=== PATIENT | female | born 1995 | race Caucasian/White ===

== ENCOUNTER 2019-12-18 02:38 | Inpatient (IN) ==
[2019-12-18] MEDS ORDERED: OXYTOCIN 30 UNITS/500 ML BAG IV PRN ×3 (03:05→21:56)
[2019-12-18 03:37] LABS: Hematocrit (blood only) 34.6 % (37-47); Hemoglobin 11.5 g/dL (12.0-16.0); Mean Corpuscular Volume 84.2 fL (80-100); Mean Platelet Volume 10.2 fL (7.4-10.4); Platelet Count 235 K/uL (130-400); RDW Coefficient of Variation 16.7 % (11.5-14.5); RDW Standard Deviation 51.8 fL (36.4-46.3); Red Blood Count 4.11 M/uL (4.2-5.4); White Blood Count 11.05 K/uL (4.8-10.8)
[2019-12-18] MEDS ORDERED: PATIENT'S ALLERGY INFO NEEDS ENTERED STA (03:38)
[2019-12-18 03:59] LABS: Mean Corpuscular Hgb Conc 33.2 g/dL (32-36)
--- NOTE | 2019-12-18 08:34 | History & Physical Report ---
Date of Service December 18, 2019 Assessment & Plan (1) Premature rupture of membranes: Patient is a 24-year-old G1, P0 at 39 weeks and 5 days of gestation, admitted for premature rupture of membranes at term, not in labor. Vital signs stable afebrile, heart rate reassuring, GBS negative, Coronavirus negative, Discussed with the patient about induction of labor at term to a decrease risk of intermittent infection. Patient agrees with Pitocin to induce labor. All questions were answered. Admission and Anticipated Discharge Date Admission Date: December 18, 2019 History of Present Illness Primary Care Provider: NO PCP Patient is a 24-year-old G1, P0 at 39 weeks and 5 days of gestation who was admitted this morning for spontaneous rupture of membranes. Patient started to feel leakage of fluid at 1 AM. It has been clear. Patient denies contractions, vaginal bleeding, fever chills, abdominal pain, headaches, change in her vision and nausea or vomiting. Her was uncomplicated. Rh- GBS negative Coronavirus negative. 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 Other Information That Helps Us Care for You: No Feels Safe at Home: Yes Safety Concerns: Feels Safe At This Time [employer] TE[employer] History No history of STDs, no chlamydia, gonorrhea nor genital herpes. Physical Exam Constitutional: WD/WN, vitals as above well developed and well nourished Patient is comfortably lying in smiling, not in acute distress Gastrointestinal (Abdomen): normal bowel sounds, soft, nontender, no hepatosplenomegaly (Gravid, 7 to 8 pounds.) Genitourinary: normal external appearance Manual OB Exam: + cervical dilation 1 cm, + cervical effacement 10% and + station -2 OB Exam Monitor Tracing: + external uterine monitor used and + category I Results & Data ([facility]) Vital Signs (Past 12 Hours) Vital Signs Temp Pulse Resp BP 12/18/19 07:11 36.7 C 77 18 124/70 12/18/19 07:06 77 124/70 12/18/19 06:46 81 122/61 12/18/19 05:57 80 131/81 12/18/19 05:56 36.8 C 16 12/18/19 03:10 36.5 C 89 16 120/71
[2019-12-18] MEDS: LACTATED RINGER'S 1,000 ML IV PRN ×2 (08:59→19:55)
[2019-12-18] MEDS ORDERED: fentaNYL 2MCG/ML ROPIVACAINE 1.25MG/ML 100 ML BAG EPI PRN (13:42)
[2019-12-18] MEDS ORDERED: NALOXONE HCL 0.4 MG/1 ML VIAL/CARP IV PRN (13:42)
[2019-12-18] MEDS ORDERED: diphenhydrAMINE 50 MG/ML VIAL IV PRN (13:42)
[2019-12-18] MEDS ORDERED: ePHEDrine sulfate 50 MG/ML AMP IV PRN (13:42)
[2019-12-18] MEDS ORDERED: ONDANSETRON INJ 2 MG/ML 2 ML VIAL IV PRN (13:42)
[2019-12-18] MEDS ORDERED: NALOXONE HCL 1 MG in SODIUM CHLORIDE 0.9% 1000ML 1,000 ML IV PRN (13:42)
--- NOTE | 2019-12-18 13:51 | Anesthesiology Consultation ---
Date of Service December 18, 2019 Assessment & Plan (1) Encounter for pre-operative examination: Chart Review Chart Review: Patient NOT seen in Pre Admission Testing and Acceptable Risk for Labor Epidural Consults Requested none History Height/Weight Height: 5 ft 6 in Weight: 92.079 kg Allergies Allergy/AdvReac Type Severity Reaction Status Date / Time No Known Allergies Allergy Verified 12/18/19 08:44 Medications Home Medications Medication Instructions Recorded Confirmed Last Taken prenat.vits,fabienne,dyi-izkt-aqpsc 1 tab PO DAILY 12/18/19 12/18/19 12/17/19 07:00 [ Vitamin] Active Medications Generic Name Dose Route Start Last Admin Trade Name Freq PRN Reason Stop Dose Admin Lactated Ringer's 1,000 mls @ 125 mls/hr 12/18/19 03:05 12/18/19 08:59 Lr IV 12/20/19 03:04 125 mls/hr .Q8H PRN Administration L&D Protocol Protocol Oxytocin 30 units in 500 mls @ 10 mls/hr 12/18/19 08:29 12/18/19 11:00 Pitocin IV 12/20/19 08:28 0.6 units/hr .Q24H PRN 10 mls/hr Labor Induction/Augmentation Titration Protocol 0.6 UNITS/HR Exercise / Class Metabolic Activity II 4-5 Yardwork/Stairs/Walk up hill Past Anesthesia History No Hx of Anesthesia Complications and No Family Hx of Anesthesia Complications History of PONV No Hx of PONV and No Hx of Motion Sickness Social History Smoking Status: Never smoker Do You Dip or Chew Tobacco: No Hx Alcohol Use: No Hx Substance Use: No substance use type: does not use Physical Exam Vital Signs Last Vital Signs Temp 36.5 C 12/18/19 11:22 Pulse 75 12/18/19 13:46 Resp 18 12/18/19 11:22 BP 117/70 12/18/19 13:46 Pulse Ox 97 12/18/19 13:44 Testing Laboratory Results 12/18/19 03:20
[2019-12-18] MEDS ORDERED: ePHEDrine sulfate 50 MG/ML AMP ONE (13:59)
[2019-12-18] MEDS ORDERED: BUPIVACAINE 0.25% 30 ML VIAL ONE (13:59)
[2019-12-18] MEDS ORDERED: fentaNYL citrate 100 MCG/2 ML VIAL ONE (13:59)
[2019-12-18] MEDS ORDERED: fentaNYL 2MCG/ML ROPIVACAINE 1.25MG/ML 100 ML BAG EPI ONE (14:00)
--- NOTE | 2019-12-18 16:00 | Obstetrical Progress Note ---
Date of Service December 18, 2019 Assessment & Plan Admission and Anticipated Discharge Date Admission Date: December 18, 2019 Subjective Late entry from 1530 Patient is comfortable, received epidural for pain Pitocin is at 16 miu/min FHR categ I VE; 2/ 80%/ -2 Continue to monitor closely Anticipate Results & Data ([facility]) Vital Signs (Past 12 Hours) Vital Signs Temp Pulse Resp BP Pulse Ox 12/18/19 15:56 66 98 12/18/19 15:51 64 97 12/18/19 15:48 74 118/66 12/18/19 15:46 62 96 12/18/19 15:41 62 97 12/18/19 15:36 59 L 98 12/18/19 15:33 61 114/66 12/18/19 15:31 64 97 12/18/19 15:26 71 96 12/18/19 15:21 75 97 12/18/19 15:16 68 124/63 98 12/18/19 15:11 60 120/71 98 12/18/19 15:06 77 97 12/18/19 15:05 71 117/69 12/18/19 15:01 74 119/69 97 12/18/19 14:56 82 125/72 96 12/18/19 14:51 71 97 12/18/19 14:50 67 128/62 12/18/19 14:46 74 97 12/18/19 14:45 72 122/65 12/18/19 14:43 80 123/65 12/18/19 14:41 75 123/67 97 12/18/19 14:39 67 117/59 L 12/18/19 14:37 78 124/66 12/18/19 14:36 72 97 12/18/19 14:35 75 124/66 12/18/19 14:33 80 124/65 12/18/19 14:31 78 128/73 98 12/18/19 14:29 81 124/66 12/18/19 14:27 67 127/67 12/18/19 14:26 77 97 12/18/19 14:25 81 125/67 12/18/19 14:23 74 125/65 12/18/19 14:21 86 118/55 L 100 12/18/19 14:19 75 129/59 L 12/18/19 14:17 87 132/72 12/18/19 14:16 86 99 12/18/19 14:15 98 H 131/75 12/18/19 14:13 88 133/75 12/18/19 14:11 89 129/74 100 12/18/19 14:09 74 121/68 12/18/19 14:06 94 H 99 12/18/19 14:01 75 99 12/18/19 13:56 81 98 12/18/19 13:49 84 96 12/18/19 13:46 75 117/70 12/18/19 13:44 80 97 12/18/19 13:43 190 H 82 L 12/18/19 12:31 73 119/70 12/18/19 11:22 36.5 C 73 18 121/67 12/18/19 09:30 36.7 C 76 20 116/64 12/18/19 07:11 36.7 C 77 18 124/70 12/18/19 07:06 77 124/70 12/18/19 06:46 81 122/61 12/18/19 05:57 80 131/81 12/18/19 05:56 36.8 C 16
--- NOTE | 2019-12-18 20:58 | Obstetrical Progress Note ---
Date of Service December 18, 2019 Assessment & Plan Admission and Anticipated Discharge Date Admission Date: December 18, 2019 Subjective Patient is reevaluated Feels mild cramping VE; 10/ 10%/ +3, almost FHR categ I Plan to start pushing Results & Data ([facility]) Vital Signs (Past 12 Hours) Vital Signs Temp Pulse Resp BP Pulse Ox 12/18/19 20:51 82 100 12/18/19 20:46 91 H 99 12/18/19 20:41 117 H 99 12/18/19 20:36 69 97 12/18/19 20:33 65 117/69 12/18/19 20:31 69 97 12/18/19 20:30 20 12/18/19 20:26 76 98 12/18/19 20:21 81 97 12/18/19 20:18 78 113/68 12/18/19 20:16 85 98 12/18/19 20:11 75 97 12/18/19 20:06 73 98 12/18/19 20:03 78 118/69 12/18/19 20:01 76 98 12/18/19 20:00 20 12/18/19 19:56 76 100 12/18/19 19:51 69 100 12/18/19 19:48 67 119/65 12/18/19 19:46 66 97 12/18/19 19:41 63 97 12/18/19 19:36 64 98 12/18/19 19:33 65 124/69 12/18/19 19:31 65 99 12/18/19 19:26 68 99 12/18/19 19:21 67 99 12/18/19 19:18 64 120/70 12/18/19 19:16 60 97 12/18/19 19:11 62 98 12/18/19 19:06 68 99 12/18/19 19:03 37.0 C 75 18 125/73 12/18/19 19:01 66 100 12/18/19 18:56 67 99 12/18/19 18:51 68 99 12/18/19 18:48 63 118/67 12/18/19 18:46 70 98 12/18/19 18:41 64 98 12/18/19 18:36 75 98 12/18/19 18:33 71 114/63 12/18/19 18:31 75 98 12/18/19 18:26 77 98 12/18/19 18:21 74 97 12/18/19 18:18 67 18 129/70 12/18/19 18:16 82 98 12/18/19 18:11 76 98 12/18/19 18:06 82 97 12/18/19 18:03 69 102/57 L 12/18/19 18:01 74 97 12/18/19 17:56 72 97 12/18/19 17:51 84 97 12/18/19 17:48 70 105/58 L 12/18/19 17:46 37.0 C 65 18 110/63 97 12/18/19 17:41 76 97 12/18/19 17:36 86 97 12/18/19 17:33 85 114/65 12/18/19 17:31 74 97 12/18/19 17:26 75 97 12/18/19 17:21 88 97 12/18/19 17:18 82 18 114/65 12/18/19 17:16 81 97 12/18/19 17:11 73 97 12/18/19 17:06 73 97 12/18/19 17:03 75 118/67 12/18/19 17:01 74 96 12/18/19 16:56 69 98 12/18/19 16:51 82 97 12/18/19 16:48 90 120/67 12/18/19 16:46 91 H 98 12/18/19 16:41 84 98 12/18/19 16:36 72 99 12/18/19 16:34 76 117/66 12/18/19 16:31 64 98 12/18/19 16:26 64 99 12/18/19 16:21 64 99 12/18/19 16:18 63 18 115/69 12/18/19 16:16 66 100 12/18/19 16:11 66 98 12/18/19 16:06 64 98 12/18/19 16:03 62 18 120/72 12/18/19 16:01 69 98 12/18/19 15:56 66 98 12/18/19 15:51 64 97 12/18/19 15:48 74 18 118/66 12/18/19 15:46 62 96 12/18/19 15:41 62 97 12/18/19 15:36 59 L 98 12/18/19 15:33 61 18 114/66 12/18/19 15:31 64 97 12/18/19 15:26 71 96 12/18/19 15:21 75 97 12/18/19 15:16 68 18 124/63 98 12/18/19 15:11 60 120/71 98 12/18/19 15:06 77 97 12/18/19 15:05 71 117/69 12/18/19 15:01 74 18 119/69 97 12/18/19 14:56 82 125/72 96 12/18/19 14:51 71 97 12/18/19 14:50 67 18 128/62 12/18/19 14:46 74 18 97 12/18/19 14:45 72 122/65 12/18/19 14:43 80 123/65 12/18/19 14:41 75 16 123/67 97 12/18/19 14:39 67 16 117/59 L 12/18/19 14:37 78 124/66 12/18/19 14:36 72 97 12/18/19 14:35 75 18 124/66 12/18/19 14:33 80 124/65 12/18/19 14:31 78 128/73 98 12/18/19 14:29 81 124/66 12/18/19 14:27 67 127/67 12/18/19 14:26 77 97 12/18/19 14:25 81 125/67 12/18/19 14:23 74 125/65 12/18/19 14:21 86 118/55 L 100 12/18/19 14:19 75 129/59 L 12/18/19 14:17 87 132/72 12/18/19 14:16 86 99 12/18/19 14:15 98 H 131/75 12/18/19 14:13 88 133/75 12/18/19 14:11 89 129/74 100 12/18/19 14:09 74 121/68 12/18/19 14:06 94 H 99 12/18/19 14:01 75 99 12/18/19 13:56 81 98 12/18/19 13:49 84 96 12/18/19 13:46 75 117/70 12/18/19 13:44 80 97 12/18/19 13:43 190 H 82 L 12/18/19 12:31 73 119/70 12/18/19 11:22 36.5 C 73 18 121/67 12/18/19 09:30 36.7 C 76 20 116/64
[2019-12-18] MEDS ORDERED: oxyCODONE/ACETAMINOPHEN 5mg/325mg TAB PO PRN (21:56)
[2019-12-18] MEDS ORDERED: MEASLES, MUMPS & RUBELLA VIRUS VIAL SQ ONE (21:56)
[2019-12-18] MEDS ORDERED: HYDROCORTISONE ACETATE 25 MG SUPP PR PRN (21:56)
[2019-12-18] MEDS ORDERED: ACETAMINOPHEN 325 MG TAB PO PRN (21:56)
[2019-12-18] MEDS ORDERED: bisacodyL 10 MG SUPP PR PRN (21:56)
[2019-12-18] MEDS ORDERED: DIPHTHERIA/TETANUS/PERTUSSIS 0.5 ML SYR/VIAL IM ONE (21:56)
[2019-12-18] MEDS ORDERED: SUPERCREAM 0.870% 15 GM JAR EXT PRN (21:56)
[2019-12-18] MEDS ORDERED: BENZOCAINE 20% AER SPR 82.5 GM CAN EXT PRN (21:56)
--- NOTE | 2019-12-18 23:35 | Delivery Summary ---
DATE OF OPERATION: 12/18/2019 TIME: 21:27 p.m. DETAILS OF DELIVERY: The patient was found to be fully dilated and desired to push. She pushed for about half an hour and delivered the head without difficulty. Shoulders were delivered with minimal traction. Baby was handed off to the mother. Mouth and nose were suctioned. Cord was clamped x2 and cut at 1 minute delay and cord blood was obtained and then vagina and perineum were checked for lacerations. There were bilateral first degree labial lacerations. Right side was extending into the lower third of right vaginal wall. The right side was bleeding. It was repaired with 2-0 Vicryl starting from vagina corner, extending into the labia. Labial part was repaired with 3-0 Vicryl on SH needle and then the left labial first degree laceration was also repaired with 3-0 Vicryl on SH needle. Excellent hemostasis was achieved. Placenta was found to be in the vagina, delivered spontaneous as intact and complete. Uterus was explored, found to be empty. Lower segment was cleared of all clots and debris. Fundus was firm. EBL was 300 mL. Mom and baby tolerated the procedure well. Sponge, lap, needle count was correct x2. Baby was a viable female , Apgars 8/9. No complications happened and I was present during whole procedure. I attest to the content of the Intraoperative Record and any orders documented therein. Any exceptions are noted below. MTDD
--- NOTE | 2019-12-19 00:50 | Anesthesia Procedure Note ---
Date of Service December 19, 2019 Anesthesia Post Epidural Note Vital Signs Vital Signs: Temp Pulse Resp BP Pulse Ox 37.0 C 75 18 111/65 98 12/18/19 21:00 12/19/19 00:41 12/18/19 22:38 12/19/19 00:41 12/18/19 21:46 Pain Intensity Lower Back: Pain Intensity: 0 Notes Mental Status: alert / awake / arousable and participated in evaluation Patient Amnestic to Procedure: No Nausea / Vomiting: adequately controlled Pain: adequately controlled Airway Patency, RR, SpO2: stable & adequate BP & HR: stable & adequate Hydration State: stable & adequate Neuraxial Anesthesia: was administered and sensory block is resolving Anesthetic Complications: no major complications apparent and Pt Satisfied with anesthetic care Epidural: Removed without complications and With tip intact
[2019-12-19 06:52] LABS: Hematocrit (blood only) 30.1 % (37-47); Hemoglobin 10.2 g/dL (12.0-16.0); Mean Corpuscular Hemoglobin 28.3 pg (25-34); Mean Corpuscular Hgb Conc 33.9 g/dL (32-36); Mean Corpuscular Volume 83.6 fL (80-100); Mean Platelet Volume 10.3 fL (7.4-10.4); Platelet Count 230 K/uL (130-400); RDW Coefficient of Variation 16.5 % (11.5-14.5); RDW Standard Deviation 50.5 fL (36.4-46.3); White Blood Count 16.56 K/uL (4.8-10.8)
[2019-12-19] MEDS: DOCUSATE SODIUM 100 MG CAP PO SCH ×2 (07:46→20:42)
[2019-12-19] MEDS: IBUPROFEN 600 MG TAB PO PRN ×3 (07:46→20:38)
[2019-12-19] MEDS: PRENATAL VITAMIN 1 TAB PO SCH (07:46)
[2019-12-19] MEDS: FERROUS SULFATE 325 MG TAB PO SCH (07:47)
[2019-12-19] MEDS ORDERED: bisacodyL 5 MG TABEC PO SCH (20:00)
[2019-12-20] MEDS: IBUPROFEN 600 MG TAB PO PRN ×2 (02:57→08:45)
[2019-12-20 06:17] LABS: Hematocrit (blood only) 25.9 % (37-47); Hemoglobin 8.6 g/dL (12.0-16.0)
[2019-12-20] MEDS: FERROUS SULFATE 325 MG TAB PO SCH (08:45)
[2019-12-20] MEDS: PRENATAL VITAMIN 1 TAB PO SCH (08:45)
[2019-12-20] MEDS: DOCUSATE SODIUM 100 MG CAP PO SCH (08:45)
--- NOTE | 2019-12-20 11:14 | Obstetrical Progress Note ---
Date of Service December 20, 2019 Assessment & Plan Admission and Anticipated Discharge Date Admission Date: December 18, 2019 Physical Exam Physical Exam: abdomen soft and non tender no calf tenderness ambulating well vaginal bleeding scant hgb 8.6 Results & Data ([facility]) Vital Signs (Past 12 Hours) Vital Signs Temp Pulse Resp BP 12/20/19 08:15 36.6 C 89 16 121/75 12/19/19 23:30 36.8 C 82 18 114/74
== END 2019-12-20 13:14 | disposition home or self-care (01) | DRG 807 ==
LOC: OPB 02:38 → 4S1 03:04 → 4S2 12-19 00:57

== ENCOUNTER 2022-06-25 22:37 | Inpatient (IN) ==
[2022-06-25] MEDS ORDERED: LIDOCAINE 1% LOCAL 20 ML VIAL INFIL PRN (23:35)
[2022-06-25] MEDS ORDERED: PENICILLIN G POTASSIUM 6 MU in DEXTROSE 5% 250 ML IV STA (23:35)
[2022-06-25] MEDS ORDERED: OXYTOCIN 30 UNITS/500 ML BAG IV PRN ×2 (23:35→23:36)
[2022-06-25] MEDS: LACTATED RINGER'S 1,000 ML IV PRN (23:45)
[2022-06-26 00:21] LABS: Hematocrit (blood only) 32.7 % (37.0-47.0); Hemoglobin 10.9 g/dl (12.0-16.0); Mean Corpuscular Hemoglobin 27.9 pg (25.0-34.0); Mean Corpuscular Hgb Conc 33.3 g/dL (32.0-36.0); Mean Corpuscular Volume 83.6 fL (80.0-100.0); Platelet Count 273 K/uL (130-400); RDW Coefficient of Variation 13.8 % (11.5-14.5); RDW Standard Deviation 41.7 fL (36.4-46.3); Red Blood Count 3.91 M/uL (4.20-5.40); White Blood Count 10.35 K/ul (4.8-10.8)
--- NOTE | 2022-06-26 00:24 | History & Physical Report ---
Date of Service June 26, 2022 Assessment & Plan (1) Spontaneous rupture of amniotic membranes: Plan: 26-year-old -0-0-1 at 41 weeks of gestation who was scheduled for induction of labor for today but presenting with spontaneous rupture of membranes since 10 PM last night. Vital signs stable afebrile, heart rate reassuring, Light meconium noted on exam, Cervix favorable, GBS positive, Plan to admit, monitor, labs, penicillin for GBS and then induction/augmentation with oxytocin, All questions were answered. (2) Meconium in amniotic fluid: (3) GBS (group B Streptococcus carrier), +RV culture, currently : (4) Post-term , 40-42 weeks of gestation: Admission and Anticipated Discharge Date Admission Date: June 25, 2022 History of Present Illness Chief Complaint: Leaking of fluid Primary Care Provider: NO PCP Patient is a 26-year-old -0-0-1 at 41 weeks of gestation who was sent to feel leakage of fluid since 10 PM last night. It was yellow initially and then has been clear. She feels mild irregular contractions, they are not painful yet. She denies vaginal bleeding, fever chills, headaches, change in her vision. She reports good movements. Her has been uncomplicated except Rh-, GBS positive. Allergies Allergy/AdvReac Type Severity Reaction Status Date / Time No Known Allergies Allergy Verified 12/18/19 08:44 Home Medications Medication Instructions Recorded Confirmed Type prenat.vits,fabienne,trw-cwia-brjoh 1 tab PO DAILY 12/18/19 06/25/22 History Patient History Social History Smoking Status: Never smoker Second Hand Exposure: No; Hx Alcohol Use: No Hx Substance Use: No Preferred Language: Citizen Of [place] Communication Ability: Effective Coal Shooter Required: No Beliefs That Will Affect Care: None marital status: Current Living Situation: Spouse and Family Current Living Situation Comment: Pt lives with and 2 YO daughter. 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 history of STDs, no history of genital herpes, chlamydia, gonorrhea Review of Systems as per Subjective / HPI Physical Exam Constitutional: WD/WN, vitals as above well developed, well nourished and comfortable Gastrointestinal (Abdomen): normal bowel sounds, soft, nontender, no hepatosplenomegaly (Gravid) Genitourinary: normal external appearance (Grossly ruptured, light meconium stained fluid) OB Exam Abdomen: + vertex Manual OB Exam: + cervical dilation 3 cm, + cervical effacement 30% and + station -2 OB Exam Monitor Tracing: + external uterine monitor used and + category I Results & Data Vital Signs (Past 12 Hours) Vital Signs Temp Pulse Resp BP 06/25/22 23:19 85 126/70 06/25/22 23:02 36.9 C 18 Diagnostic Findings Lab Results 06/25/22 06/25/22 Range/Units 23:00 23:46 WBC 10.35 (4.8-10.8) K/ul RBC 3.91 L (4.20-5.40) M/uL Hgb 10.9 L (12.0-16.0) g/dl Hct 32.7 L (37.0-47.0) % MCV 83.6 (80.0-100.0) fL MCH 27.9 (25.0-34.0) pg MCHC 33.3 (32.0-36.0) g/dL RDW Std Deviation 41.7 (36.4-46.3) fL RDW Coeff of Augie 13.8 (11.5-14.5) % Plt Count 273 (130-400) K/uL MPV 10.0 (9.4-12.4) fL SARS-CoV-2, RNA, NAAT NEGATIVE (NEGATIVE)
[2022-06-26] MEDS ORDERED: ePHEDrine sulfate 50 MG/ML AMP ONE (02:10)
[2022-06-26] MEDS ORDERED: fentaNYL citrate PF 100 MCG/2 ML VIAL ONE (02:10)
[2022-06-26] MEDS ORDERED: BUPIVACAINE 0.25% PF 30 ML VIAL ONE (02:10)
[2022-06-26] MEDS ORDERED: SODIUM CHLORIDE 0.9% PF INJ 10 ML VIAL ONE (02:10)
[2022-06-26] MEDS ORDERED: fentaNYL 2MCG/ML ROPIVACAINE 1.25MG/ML 100 ML BAG EPI ONE (02:11)
[2022-06-26] MEDS ORDERED: LIDOCAINE 2%/EPINEPHRINE 1:200,000 20 ML PF ONE (02:11)
--- NOTE | 2022-06-26 02:14 | Anesthesiology Consultation ---
Date of Service June 26, 2022 Assessment & Plan (1) Encounter for pre-operative examination: Chart Review Chart Review: Acceptable Risk for Labor Epidural History Height/Weight Height: 5 ft 6 in Weight: 102.965 kg Allergies Allergy/AdvReac Type Severity Reaction Status Date / Time No Known Allergies Allergy Verified 12/18/19 08:44 Medications Home Medications Medication Instructions Recorded Confirmed Last Taken prenat.vits,fabienne,vsq-rrnl-dblmq 1 tab PO DAILY 12/18/19 06/25/22 06/25/22 10:30 Active Medications Generic Name Dose Route Start Last Admin Trade Name Freq PRN Reason Stop Dose Admin Lactated Ringer's 1,000 mls @ 150 mls/hr 06/25/22 23:35 06/25/22 23:45 Lr IV 06/27/22 23:34 150 mls/hr .[id number] PRN Administration L&D Protocol Protocol Oxytocin 30 units in 500 mls @ 2 mls/hr 06/25/22 23:36 06/26/22 01:35 Pitocin IV 06/27/22 23:35 0.24 units/hr .Q24H PRN 4 mls/hr Labor Induction/Augmentation Titration Protocol 0.12 UNITS/HR Past Medical History Medical History (Updated 06/26/22 @ 02:14 by Flo Betancourt MD) Post-term , 40-42 weeks of gestation Past Surgical History Surgical History (Updated 06/26/22 @ 02:13 by Flo Betancourt MD) No significant past surgical history Social History Smoking Status: Never smoker Hx Alcohol Use: No Hx Substance Use: No substance use type: does not use Physical Exam Vital Signs Last Vital Signs Temp 36.7 C 06/26/22 01:02 Pulse 93 H 06/26/22 02:03 Resp 18 06/25/22 23:02 BP 133/89 06/26/22 02:03 Testing Laboratory Results 06/25/22 23:46 Blood Type A Negative 06/25/22 23:46 Blood Type Cancelled 06/25/22 23:46 Antibody Screen Cancelled 06/25/22 23:46 Antibody Screen NEGATIVE 06/25/22 23:46
[2022-06-26] MEDS ORDERED: PENICILLIN G POTASSIUM 3 MU in DEXTROSE 5% 100 ML IV PRN (02:35)
[2022-06-26] MEDS ORDERED: NALOXONE HCL 1 MG in SODIUM CHLORIDE 0.9% 1000ML 1,000 ML IV PRN (03:13)
[2022-06-26] MEDS ORDERED: ePHEDrine sulfate 50 MG/ML AMP IV PRN (03:13)
[2022-06-26] MEDS ORDERED: fentaNYL 2MCG/ML ROPIVACAINE 1.25MG/ML 100 ML BAG EPI PRN (03:13)
[2022-06-26] MEDS ORDERED: ONDANSETRON INJ 2 MG/ML 2 ML VIAL IV PRN (03:13)
[2022-06-26] MEDS ORDERED: NALOXONE HCL 0.4 MG/1 ML VIAL/CARP IV PRN (03:13)
[2022-06-26] MEDS: LACTATED RINGER'S 1,000 ML IV PRN (03:33)
--- NOTE | 2022-06-26 07:26 | Obstetrical Progress Note ---
Date of Service June 26, 2022 Assessment & Plan Admission and Anticipated Discharge Date Admission Date: June 25, 2022 Subjective Patient has received epidural and comfortable now FHR categ I VE; 7/ 80%0 Ctxs q 2-3 min, Oxytocin is at 6 miu/min Continue to monitor closely Anticipate Results & Data Vital Signs (Past 12 Hours) Vital Signs Temp Pulse Resp BP Pulse Ox 06/26/22 07:22 89 100 06/26/22 07:20 101 H 125/81 06/26/22 07:17 105 H 98 06/26/22 07:12 105 H 99 06/26/22 07:07 103 H 100 06/26/22 07:06 101 H 128/77 06/26/22 07:02 99 H 98 06/26/22 07:00 18 06/26/22 07:00 18 06/26/22 06:57 95 H 100 06/26/22 06:52 94 H 97 06/26/22 06:49 93 H 123/81 06/26/22 06:47 88 99 06/26/22 06:42 97 H 97 06/26/22 06:37 88 97 06/26/22 06:30 18 06/26/22 06:30 18 06/26/22 06:34 93 H 129/77 06/26/22 06:32 95 H 97 06/26/22 06:27 89 98 06/26/22 06:22 94 H 98 06/26/22 06:21 90 128/77 06/26/22 06:17 85 98 06/26/22 06:00 18 06/26/22 06:00 18 06/26/22 06:12 89 99 06/26/22 06:07 90 100 06/26/22 06:05 36.7 C 93 H 125/77 06/26/22 06:02 80 99 06/26/22 05:57 105 H 100 06/26/22 05:52 97 H 99 06/26/22 05:50 90 129/77 06/26/22 05:47 95 H 99 06/26/22 05:42 109 H 99 06/26/22 05:37 89 100 06/26/22 05:34 82 119/67 06/26/22 05:32 86 99 06/26/22 05:30 16 06/26/22 05:30 16 06/26/22 05:27 78 100 06/26/22 05:22 86 100 06/26/22 05:19 82 120/69 06/26/22 05:17 78 100 06/26/22 05:00 18 06/26/22 05:00 18 06/26/22 05:12 89 100 06/26/22 05:07 84 100 06/26/22 05:05 80 128/73 06/26/22 05:02 87 99 06/26/22 04:57 117 H 100 06/26/22 04:52 83 100 06/26/22 04:51 69 99/57 L 06/26/22 04:35 36.9 C 06/26/22 04:47 73 100 06/26/22 04:30 16 06/26/22 04:30 16 06/26/22 04:00 18 06/26/22 04:00 18 06/26/22 03:45 20 06/26/22 03:45 20 06/26/22 03:30 18 06/26/22 03:30 18 06/26/22 03:20 18 06/26/22 03:20 18 06/26/22 04:42 74 100 06/26/22 03:10 20 06/26/22 03:10 20 06/26/22 04:37 69 100 06/26/22 04:32 76 100 06/26/22 04:31 75 109/57 L 06/26/22 04:27 66 99 06/26/22 04:26 65 113/58 L 06/26/22 04:22 71 100 06/26/22 04:21 75 110/61 06/26/22 04:17 70 100 06/26/22 04:16 72 100/56 L 06/26/22 04:12 100 06/26/22 04:12 69 06/26/22 04:12 74 106/51 L 06/26/22 04:07 72 100 06/26/22 04:06 71 94/55 L 06/26/22 04:02 83 100 06/26/22 04:01 82 94/53 L 06/26/22 03:57 100 06/26/22 03:57 71 06/26/22 03:57 73 95/51 L 06/26/22 03:52 100 06/26/22 03:52 76 03/21/23 03:52 75 92/54 L 06/26/22 03:47 65 100 06/26/22 03:46 71 92/54 L 06/26/22 03:42 80 91/54 L 99 06/26/22 03:37 100 06/26/22 03:37 75 06/26/22 03:37 73 98/54 L 06/26/22 03:32 82 100 06/26/22 03:31 78 106/55 L 06/26/22 03:29 83 108/56 L 06/26/22 03:27 99 06/26/22 03:27 84 06/26/22 03:27 73 103/53 L 06/26/22 03:25 80 102/58 L 06/26/22 03:22 87 99 06/26/22 03:23 79 98/52 L 06/26/22 03:21 81 96/55 L 06/26/22 03:19 94 H 94/48 L 06/26/22 03:17 97 06/26/22 03:17 96 H 06/26/22 03:17 81 99/52 L 06/26/22 03:15 80 18 97/55 L 06/26/22 03:13 81 98/54 L 06/26/22 03:12 85 98 06/26/22 03:11 81 94/51 L 06/26/22 03:09 83 101/57 L 06/26/22 03:07 100 H 97 06/26/22 03:06 90 103/55 L 06/26/22 03:02 108 H 98 06/26/22 02:57 102 H 100 06/26/22 02:52 110 H 100 06/26/22 02:47 118 H 100 06/26/22 02:42 107 H 100 06/26/22 02:37 92 H 100 06/26/22 02:32 94 H 100 06/26/22 02:27 90 100 06/26/22 02:22 156 H 100 06/26/22 02:03 93 H 133/89 06/26/22 01:33 82 120/75 06/26/22 01:02 36.7 C 85 125/78 06/25/22 23:19 85 126/70 06/25/22 23:02 36.9 C 18
[2022-06-26] MEDS ORDERED: HYDROCORTISONE ACETATE 25 MG SUPP PR PRN (08:10)
[2022-06-26] MEDS ORDERED: ACETAMINOPHEN 325 MG TAB PO PRN (08:10)
[2022-06-26] MEDS ORDERED: MEASLES, MUMPS & RUBELLA VIRUS VIAL SQ ONE (08:10)
[2022-06-26] MEDS ORDERED: BENZOCAINE 20% AER SPR 82.5 GM CAN EXT PRN (08:10)
[2022-06-26] MEDS ORDERED: DIPHTHERIA/TETANUS/PERTUSSIS 0.5mL SYR/VIAL (Age 7+yrs) IM ONE (08:10)
[2022-06-26] MEDS ORDERED: OXYTOCIN 30 UNITS/500 ML BAG IV PRN (08:10)
--- NOTE | 2022-06-26 08:15 | Delivery Summary ---
Vaginal Delivery Summary Date of Service June 26, 2022 Vaginal Delivery Summary Patient was found to be fluid dilated and desired to push. She pushed for about 10 minutes with 6 contractions and delivered the head without difficulty. The shoulders were delivered with minimal traction and the baby was handed off to the mother, where the mouth and nose were suctioned, the cord was clamped times and cut informatively. The baby was moving and crying at that point. Then the vagina and perineum were checked for lacerations. They were intact and no lacerations were found. The bladder was drained with a straight catheter and 200 mL of clear urine was obtained. The placenta was found to be in the vagina, delivered spontaneously as intact and complete. Uterus was explored and found to be empty, lower segment was cleared of all clots and debris's, fundus was firm and EBL was 200 mL. The mom and baby tolerated procedure well. Baby was a viable male , Apgars 8/9 and weight is pending. No complications happened and I was present during whole procedure. At the end of the procedure the instrument and sponge count was correct x2.
--- NOTE | 2022-06-26 09:44 | Anesthesia Procedure Note ---
Date of Service June 26, 2022 Anesthesia Post Epidural Note Vital Signs Vital Signs: Temp Pulse Resp BP Pulse Ox 37.0 C 78 20 117/67 98 06/26/22 07:00 06/26/22 09:34 06/26/22 07:00 06/26/22 09:34 06/26/22 08:07 Notes Mental Status: alert / awake / arousable and participated in evaluation Patient Amnestic to Procedure: No Nausea / Vomiting: adequately controlled Pain: adequately controlled Airway Patency, RR, SpO2: stable & adequate BP & HR: stable & adequate Hydration State: stable & adequate Neuraxial Anesthesia: was administered and sensory block is resolving Anesthetic Complications: no major complications apparent and Pt Satisfied with anesthetic care Epidural: Removed without complications and With tip intact
[2022-06-26] MEDS: IBUPROFEN 600 MG TAB PO PRN ×2 (18:35→23:39)
[2022-06-26] MEDS: DOCUSATE SODIUM 100 MG CAP PO SCH (22:08)
[2022-06-27 07:10] LABS: Hematocrit (blood only) 31.5 % (37.0-47.0); Hemoglobin 10.3 g/dl (12.0-16.0); Mean Corpuscular Hemoglobin 27.5 pg (25.0-34.0); Mean Corpuscular Hgb Conc 32.7 g/dL (32.0-36.0); Mean Corpuscular Volume 84.2 fL (80.0-100.0); Platelet Count 212 K/uL (130-400); RDW Standard Deviation 43.2 fL (36.4-46.3); Red Blood Count 3.74 M/uL (4.20-5.40); White Blood Count 9.52 K/ul (4.8-10.8)
[2022-06-27] MEDS ORDERED: FERROUS SULFATE 325 MG TAB PO SCH (08:00)
[2022-06-27] MEDS ORDERED: PRENATAL VITAMIN 1 TAB PO SCH (08:00)
--- NOTE | 2022-06-27 08:02 | Obstetrical Progress Note ---
Date of Service June 27, 2022 Assessment & Plan Admission and Anticipated Discharge Date Admission Date: June 25, 2022 Subjective Patient is seen and examined. She feels well, no complaints. Ambulating without dizziness Voiding without difficulty Tolerating regular diet with out N&V Bleeding is minimal No fever/ chills/ CP/ SOB/ N&V/ Leg pain Bottle feeding without problems Vital Signs Temp Pulse Resp BP Pulse Ox O2 Del Method 06/27/22 03:45 36.7 C 69 16 119/71 96 Room Air 06/27/22 01:30 36.7 C 65 16 112/70 96 Room Air 06/26/22 23:56 37.2 C 77 16 123/76 95 Room Air Lab Results 06/25/22 06/25/22 06/25/22 Range/Units 23:00 23:46 23:46 WBC 10.35 (4.8-10.8) K/ul RBC 3.91 L (4.20-5.40) M/uL Hgb 10.9 L (12.0-16.0) g/dl Hct 32.7 L (37.0-47.0) % MCV 83.6 (80.0-100.0) fL MCH 27.9 (25.0-34.0) pg MCHC 33.3 (32.0-36.0) g/dL RDW Std Deviation 41.7 (36.4-46.3) fL RDW Coeff of Augie 13.8 (11.5-14.5) % Plt Count 273 (130-400) K/uL MPV 10.0 (9.4-12.4) fL SARS-CoV-2, RNA, NAAT NEGATIVE (NEGATIVE) Blood Type A Negative Antibody Screen NEGATIVE 06/25/22 06/27/22 Range/Units 23:46 06:38 WBC 9.52 (4.8-10.8) K/ul RBC 3.74 L (4.20-5.40) M/uL Hgb 10.3 L (12.0-16.0) g/dl Hct 31.5 L (37.0-47.0) % MCV 84.2 (80.0-100.0) fL MCH 27.5 (25.0-34.0) pg MCHC 32.7 (32.0-36.0) g/dL RDW Std Deviation 43.2 (36.4-46.3) fL RDW Coeff of Augie 14.0 (11.5-14.5) % Plt Count 212 (130-400) K/uL MPV 10.0 (9.4-12.4) fL SARS-CoV-2, RNA, NAAT (NEGATIVE) Blood Type Cancelled Antibody Screen Cancelled PE: General: Alert, orientedx3, NAD Abd: soft, NT, fundus firm, below Umbilicus Perineum intact, Lochia rubra minimal Ext; NT, no edema AP: 26 yo s/p , ppd# 1 VSS Afebrile doing well Continue routine care Desires d/c today Discussed when to call All questions were answered D/C home , f/u in office Results & Data Vital Signs (Past 12 Hours) Vital Signs Temp Pulse Resp BP Pulse Ox O2 Del Method 06/27/22 03:45 36.7 C 69 16 119/71 96 Room Air 06/27/22 01:30 36.7 C 65 16 112/70 96 Room Air 06/26/22 23:56 37.2 C 77 16 123/76 95 Room Air
[2022-06-27] MEDS: DOCUSATE SODIUM 100 MG CAP PO SCH (08:09)
[2022-06-27] MEDS ORDERED: bisacodyL 5 MG TABEC PO SCH (20:00)
[2022-06-28] MEDS ORDERED: bisacodyL 10 MG SUPP PR PRN (08:00)
== END 2022-06-27 13:10 | disposition home or self-care (01) | DRG 807 ==
LOC: OPB 22:37 → 4S1 22:39 → 4E2 06-26 11:39